=== PATIENT | female | born 1955 ===

== ENCOUNTER → 2016-12-25 | Outpatient (CLI) | payer BC ==
--- NOTE | 2016-12-27 08:21 | MAMMOGRAPHY REPORT ---
BILATERAL DIGITAL SCREENING MAMMOGRAM TOMOSYNTHESIS WITH CAD: 12/25/2016 CLINICAL HISTORY: Routine screening. Patient has no complaints. TECHNIQUE: Breast tomosynthesis in addition to standard 2D mammography was performed. Current study was also evaluated with a Computer Aided Detection (CAD) system. COMPARISON: Comparison is made to exams dated: 12/10/2015 mammogram - [facility], mammogram, 11/04/2014 mammogram, 09/23/2013 mammogram, 08/29/2012 mammogram, and 08/25/2011 mammo gram. BREAST COMPOSITION: The tissue of both breasts is heterogeneously dense, which may obscure small mas ses. FINDINGS: There is a 2.8 x 1.7 cm asymmetry in the inferior middle one third of the right breast on the MLO view, thought to project medially based on the CC view, that is increasingly prominent compar ed to prior mammograms. Although this could represent normal fibroglandular tissue, additional spot compression tomosynthesis views and possibly ultrasound are recommended. No other suspicious mass, architectural distortion or cluster of microcalcifications is seen bilatera llyaquelin. IMPRESSION: ACR BI-RADS CATEGORY 0: INCOMPLETE EVALUATION: NEED ADDITIONAL IMAGING EVALUATION The asymmetry in the inferior right breast needs additional evaluation. The patient will be called to schedule an appointment. Approximately 10% of breast cancers are not detected with mammography. A negative mammographic report should not delay biopsy if a clinically suggestive mass is present. Josephine Bergman M.D. ay/:12/26/2016 18:19:05 Cytogeneticist: Tejal SALVADOR(Buffy)(Vj), [facility] letter sent: Addl Imaging 0 BI-RADS Code: ACR BI-RADS Category 0: Incomplete Evaluation: Need Additional Imaging Evaluation
== END | disposition home or self-care (01) ==
LOC: C.MAMM 10:09
PROVIDERS: ATTEND Family Medicine
DX: Z12.31 Encounter for screening mammogram for malignant neoplasm of breast (principal); N64.89 Other specified disorders of breast

== ENCOUNTER → 2017-01-03 | Outpatient (CLI) | payer BC ==
--- NOTE | 2017-01-03 14:49 | MAMMOGRAPHY REPORT ---
UNILATERAL RIGHT DIGITAL DIAGNOSTIC MAMMOGRAM TOMOSYNTHESIS AND TARGETED RIGHT ULTRASOUND: 01/03/2017 CLINICAL HISTORY: Callback from screening mammogram for right breast asymmetry. The patient has a fa odilon history of breast cancer, with her sister diagnosed in her 60s. TECHNIQUE: Breast tomosynthesis in addition to standard 2D mammography was performed. Spot compress ion right CC and MLO 2-D and tomosynthesis images were obtained. COMPARISON: Comparison is made to exams dated: 12/25/2016 mammogram, 12/10/2015 mammogram - [facility], 11/16/2014 mammogram, 11/04/2014 mammogram, 09/23/2013 mammogram, and 08/29/2012 mammo gram. BREAST COMPOSITION: The tissue of the right breast is heterogeneously dense, which may obscure small masses. FINDINGS: Spot compression views of the right breast demonstrate an ill-defined ovoid focal asymmetry measuring approximately 3 cm in the right lower inner quadrant. This has the appearance of normal t issue on the tomosynthesis images although the asymmetry appears more prominent compared to prior exa ms. Targeted ultrasound was performed of the right lower inner quadrant in the region of the mammographic asymmetry. In the right breast at 5:30 periareolar region, there is ill-defined mixed echogenicity tissue which measures 2.8 x 0.9 x 2.2 cm. One 4 mm anechoic cyst is also seen within the tissue. Th is correlates well with the size and location of the mammographic asymmetry. While this may represen t benign tissue or fibrocystic changes, ultrasound guided core needle biopsy is recommended for furth er evaluation. IMPRESSION: ACR BI-RADS CATEGORY 4: SUSPICIOUS, TARGETED ULTRASOUND ACR BI-RADS CATEGORY 4: SUSPICIO US Ill-defined 3 cm focal asymmetry in the right lower inner quadrant mammographically, with correspondi ng mixed echogenicity tissue seen within the right breast at 5:30 on ultrasound. While the area may represent benign breast tissue or fibrocystic changes, ultrasound-guided core needle biopsy is recomm ended for further evaluation. A phone call was made to the physician's office to confirm faxed results were received. The patient has been verbally notified of the results. She tentatively scheduled the biopsy before leaving the [facility]. Approximately 10% of breast cancers are not detected with mammography. A negative mammographic report should not delay biopsy if a clinically suggestive mass is present. Nicky Swain M.D. ah/:01/03/2017 09:42:28 Critical Care Specialist: Marian SALVADOR(Buffy)(M), [facility] letter sent: Abnormal 4/5 BI-RADS Code: ACR BI-RADS Category 4: Suspicious Ultrasound BI-RADS: ACR BI-RADS Category 4: Suspici ous
== END | disposition home or self-care (01) ==
LOC: C.MAMM 09:07
PROVIDERS: ATTEND Family Medicine
DX: N64.89 Other specified disorders of breast (principal)

== ENCOUNTER → 2017-01-11 | Outpatient (CLI) | payer BC ==
--- NOTE | 2017-01-11 09:41 | Discharge Instructions ---
Discharge Instructions Procedure Procedure Date: Jan 11, 2017. Reason for visit: Right Asymmetry. Discharge Discharge Date: Jan 11, 2017. Discharge Diagnosis: status post breast biopsy Instructions Activity Recommendations: Additional Limitations (see below) Return to School/Work: no limitations Recommended Home Diet: No Limitations Provider Instructions: ACTIVITY RECOMMENDATIONS: * No lifting, pushing, pulling or exercising the affected side for three days. RETURN TO SCHOOL/WORK: * You may return to work/school after the procedure, but do not perform any strenuous activities for 24 to 48 hours. MEDICATIONS: * Tylenol (two 325 mg) every four to six hours if needed for mild pain (if not allergic to Tylenol). DIET: * Resume previous diet. SPECIAL CARE INSTRUCTIONS: * Keep biopsy site dry for 24 hours. May shower after 24 hours, but do not soak (bathe) incision. * May remove Tegaderm (plastic patch) tomorrow AFTER showering. * Leave the steri-strips on for one week. Allow the steri-strips to fall off by themselves. If not off after one week, you may remove them. You may place a Bandaid crosswise over the strips, if desired. * Apply ice 10 minutes on and 10 minutes off as needed. * Wear a bra at bedtime to sleep more comfortably for 2-3 days. * Your referring physician should have the results after approximately 5 to 7 business days. * Call for unusual bleeding, fever, drainage, etc or if you have any questions call during normal business hours or after hours call Dr Swain, . FOLLOW UP VISIT: Follow-up with Referring Physician as scheduled. Tony Eubanks Recommendations: Call your doctor if: * Temperature above 101 degrees * Pain not relieved by pain medicine ordered * There is increased drainage or redness from any incision * You have any unanswered questions or concerns. Your Doctors Instructions noted above were prepared by provider Nicky Swain. Patient Signature Section: Patient Instructions Signature Page Katherine Corrales Patient (or Guardian) Signature/Date: I have read and understand the instructions given to me by my caregivers. Caregiver/RN/Doctor Signature/Date: The above-named patient and/or guardian has received patient instructions on this date. + Original Patient Signature Page (only) stays with chart. Please make copy for patient.
--- NOTE | 2017-01-11 14:33 | MAMMOGRAPHY REPORT ---
ULTRASOUND GUIDED BIOPSY RIGHT BREAST: 01/11/2017 CLINICAL HISTORY: Mixed echogenicity tissue in the right 5:30 breast on ultrasound, which is felt to correlate with a mammographic focal asymmetry. PATIENT CONSENT: The procedure, risks and benefits were discussed with the patient and informed writt en consent was obtained. A timeout was performed immediately prior to the procedure. PROCEDURE DESCRIPTION: With ultrasound guidance, aseptic technique, and lidocaine as the local anesth etic (1% lidocaine to anesthetize the skin and 1% lidocaine with epinephrine to anesthetize the deepe r tissues), the area of concern in the right breast 5:30 breast was sampled 4 times with a 14-gauge A chieve biopsy needle. Immediately thereafter, with ultrasound guidance, aseptic technique, and lidoc jaime as the local anesthetic, a metallic localizer clip was placed at the biopsy site. Direct pressu re was applied to the site immediately post procedure and hemostasis was achieved. Postprocedure uni lateral mammograms were performed to confirm clip placement. The patient tolerated the procedure wit hout complication. She was given wound care instructions. The specimens were sent to pathology for a nalysis. COMPARISON: Comparison is made to exams dated: 01/03/2017 mammogram, 01/03/2017 ultrasound, 12/25/2016 mammogram, 12/10/2015 mammogram - [facility], 11/16/2014 mammogram, and 11/04/2014 mamm ogram. IMPRESSION: ULTRASOUND GUIDED BIOPSY Ultrasound guided core needle biopsy of the mixed echogenicity tissue in the right 5:30 breast, with clip placement. The patient will receive pathology results from her referring provider. Nicky Swain M.D. /:01/11/2017 09:43:16 Manager Pacu: Katerina Davis, [facility]
--- NOTE | 2017-01-11 14:36 | MAMMOGRAPHY REPORT ---
UNILATERAL RIGHT DIGITAL DIAGNOSTIC MAMMOGRAM TOMOSYNTHESIS WITH CAD: 01/11/2017 CLINICAL HISTORY: Status post right breast biopsy. TECHNIQUE: Breast tomosynthesis in addition to standard 2D mammography was performed. Current study was also evaluated with a Computer Aided Detection (CAD) system. Postprocedural right CC and ML heath synthesis images including C views were obtained. COMPARISON: Comparison is made to exams dated: 01/03/2017 mammogram, 01/03/2017 ultrasound, 12/25/2016 mammogram, 12/10/2015 mammogram - [facility], and 11/16/2014 mammogram. BREAST COMPOSITION: The tissue of the right breast is heterogeneously dense, which may obscure small masses. FINDINGS: A new ribbon-shaped biopsy marker clip is seen in the right breast status post ultrasound guided biopsy of the mixed echogenicity tissue in the right 5:30 breast. The biopsy clip is located in the region of the mammographic focal asymmetry, indicating good correlation between the biopsied s onographic finding and the mammographic asymmetry. No significant postbiopsy hematoma is seen. IMPRESSION: POST PROCEDURE IMAGING FOR MARKER PLACEMENT New biopsy marker clip status post ultrasound guided biopsy of the right breast. Pathology results a re pending. Approximately 10% of breast cancers are not detected with mammography. A negative mammographic report should not delay biopsy if a clinically suggestive mass is present. Nicky Swain M.D. /:01/11/2017 10:17:01 Stoner Hand: Katerina Davis [facility] BI-RADS Code: Post Procedure Imaging For Marker Placement
== END | disposition home or self-care (01) ==
LOC: C.MAMM 09:10
PROVIDERS: ATTEND Family Medicine
DX: N64.9 Disorder of breast, unspecified (principal); N60.89 Other benign mammary dysplasias of unspecified breast

== ENCOUNTER → 2018-02-20 | Outpatient (CLI) | payer BC ==
--- NOTE | 2018-02-20 13:39 | MAMMOGRAPHY REPORT ---
BILATERAL DIGITAL SCREENING MAMMOGRAM TOMOSYNTHESIS WITH CAD: 02/20/2018 CLINICAL HISTORY: Routine screening. Patient has no complaints. TECHNIQUE: The study was acquired using full field digital technology and interpreted from soft copy. Breast tomosynthesis in addition to standard 2D mammography was performed. Current study was also ev aluated with a Computer Aided Detection (CAD) system. COMPARISON: Comparison is made to exams dated: 01/11/2017 mammogram, 01/03/2017 mammogram, 12/25/2016 m ammogram, 12/10/2015 mammogram - [facility], 11/16/2014 mammogram, and 11/04/2014 mammo gram. BREAST COMPOSITION: The tissue of both breasts is heterogeneously dense, which may obscure small mass es. FINDINGS: there is evidence of prior right breast surgery. There is also a stable ribbon-shaped biop sy marker clip in the 6:00 right breast. No suspicious mass, architectural distortion or cluster of m icrocalcifications is seen. IMPRESSION: ACR BI-RADS CATEGORY 1: NEGATIVE There is no mammographic evidence of malignancy. A 1 year screening mammogram is recommended.( [id number]) The patient will receive written notification of the results. Some breast cancers are not detected with mammography. A negative mammographic report should not lucie y biopsy if a clinically suggestive mass is present. Josephine Bergman M.D. ay/:02/20/2018 08:02:59 Roading Engineer: RT Spencer(R)(M), [facility] letter sent: Normal 1/2 BI-RADS Code: ACR BI-RADS Category 1: Negative
== END | disposition home or self-care (01) ==
LOC: C.MAMM 07:37
PROVIDERS: ATTEND Family Medicine
DX: Z12.31 Encounter for screening mammogram for malignant neoplasm of breast (principal)